=== PATIENT | female | born 1975 | race Caucasian/White ===

== ENCOUNTER 2017-04-23 05:50 | Day surgery (SDC) | payer BC ==
[~2017-04-23] VITALS: Ht 170.2 cm; Wt 81.6 kg
[2017-04-23 06:46] LABS: BILIRUBIN,URINE NEGATIVE (NEGATIVE); BLOOD, URINE NEGATIVE (NEGATIVE); CLARITY/URINE CLEAR (CLEAR); COLOR,URINE YELLOW (YELLOW); GLUCOSE,URINE NEGATIVE (NEGATIVE); KETONES,URINE NEGATIVE (NEGATIVE); LEUKOCYTE ESTERASE ,URINE NEGATIVE (NEGATIVE); NITRITE, URINE NEGATIVE (NEGATIVE); PROTEIN URINE NEGATIVE (NEGATIVE); UROBILINOGEN,URINE 0.2 (0.2-1.0)
[2017-04-23 06:53] LABS: BASOPHILS % (AUTO) 0.4 % (0.0-2.0); EOSINOPHILS # (AUTO) 0.2 K/uL (0.0-0.4); EOSINOPHILS % (AUTO) 2.3 % (0.0-4.0); HEMOGLOBIN 13.3 g/dL (12.0-16.0); LYMPHOCYTES # (AUTO) 2.1 K/uL (1.0-5.5); LYMPHOCYTES % (AUTO) 24.4 % (20.5-51.5); MEAN CORPUSCULAR HEMOGLOBIN 31 pg (27-31); MEAN CORPUSCULAR HGB CONC 35 % (32-36); MEAN CORPUSCULAR VOLUME 87 fL (79.0-98.0); MONOCYTES # (AUTO) 0.6 K/uL (0.0-1.0); MONOCYTES % (AUTO) 7.6 % (1.7-9.3); NEUTROPHILS # (AUTO) 5.6 K/uL (1.8-7.7); NEUTROPHILS % (AUTO) 65.3 % (40.0-70.0); PLATELET COUNT (AUTO) 342 K/uL (130-430); RED BLOOD CELL COUNT(AUTO) 4.35 MIL/uL (4.2-6.2); RED CELL DISTRIBUTION WIDTH 12.1 % (9.0-15.0); WHITE BLOOD COUNT (AUTO) 8.5 K/uL (4.8-10.8)
[2017-04-23] MEDS ORDERED: CEFAZOLIN SOD 1 GM/ ISO 50 ML PREMIX IV ONE (07:00)
[2017-04-23] MEDS ORDERED: NS IRRIG SOLN 1000 ML IR ONE (07:01)
[2017-04-23] MEDS ORDERED: ROCURONIUM BROMIDE 10 MG/ML (ZEMURON) IV ONE (07:01)
[2017-04-23] MEDS ORDERED: KETOROLAC TROMETHAMINE 30 MG VIAL IVP ONE (07:01)
[2017-04-23] MEDS ORDERED: SEVOFLURANE 15 MIN GAS INH ONE (07:01)
[2017-04-23] MEDS ORDERED: LR 1,000 ML IV.SOLN IV ONE (07:01)
[2017-04-23] MEDS ORDERED: fentaNYL CITRATE/PF 100 MCG/2 ML AMP IVP ONE (07:01)
[2017-04-23] MEDS ORDERED: NEOSTIGMINE METHYLSULFATE 1 MG/ML, 10 ML VIAL IVP ONE (07:01)
[2017-04-23] MEDS ORDERED: METOPROLOL TARTRATE 5 MG/5 ML VIAL IVP ONE (07:01)
[2017-04-23] MEDS ORDERED: METHYLERGONOVINE MALEATE 0.2 MG/ML AMP IM ONE (07:01)
[2017-04-23] MEDS ORDERED: GLYCOPYRROLATE 0.2 MG/ML VIAL IJ ONE (07:01)
[2017-04-23] MEDS ORDERED: PROPOFOL 200MG/ 20ML VIAL (DIPRIVAN) IV ONE (07:01)
[2017-04-23] MEDS ORDERED: MIDAZOLAM HCL 5 MG/5 ML VIAL IVP ONE (07:01)
[2017-04-23] MEDS ORDERED: ONDANSETRON HCL 4 MG/2 ML VIAL IVP ONE (07:01)
[2017-04-23] MEDS ORDERED: CEFAZOLIN 1 GM IVPB PREMIX 50 ML IV ONE (07:12)
[2017-04-23] MEDS ORDERED: LR 1,000 ML IV SCH (08:13)
[2017-04-23] MEDS ORDERED: KETOROLAC TROMETHAMINE 30 MG VIAL IVP PRN (08:15)
[2017-04-23] MEDS ORDERED: HYDROmorphone 2 MG/ML VIAL IVP PRN ×2 (08:15)
[2017-04-23] MEDS ORDERED: ONDANSETRON HCL 4 MG/2 ML VIAL IVP PRN (08:15)
[2017-04-23] MEDS ORDERED: MEPERIDINE HCL/PF 25 MG/ML DISP.SYRIN IVP PRN ×2 (08:15)
[2017-04-23] MEDS ORDERED: HYDROmorphone 1 MG INJ. 1 MG/ML AMPUL IVP PRN (08:15)
[2017-04-23] MEDS ORDERED: HYDROmorphone 1 MG INJ. 1 MG/ML AMPUL ONE ×2 (09:19→09:37)
[2017-04-23] MEDS ORDERED: METOCLOPRAMIDE HCL 10 MG/2 ML VIAL ONE (09:30)
[2017-04-23] MEDS ORDERED: ONDANSETRON HCL 4 MG/2 ML VIAL ONE (09:35)
[2017-04-23 10:01] VITALS: BP_SYST 108
== END 2017-04-23 11:35 | disposition home or self-care (01) ==
LOC: SDS 05:50 → SMU 06:57 → SDS 11:35
PROVIDERS: ATTEND Specialist
DX: D27.1 Benign neoplasm of left ovary (principal); N73.6 Female pelvic peritoneal adhesions (postinfective); E03.9 Hypothyroidism, unspecified; N80.9 Endometriosis, unspecified; M79.7 Fibromyalgia; Z88.8 Allergy status to other drugs, medicaments and biological substances; G43.909 Migraine, unspecified, not intractable, without status migrainosus; K21.9 Gastro-esophageal reflux disease without esophagitis; Z90.710 Acquired absence of both cervix and uterus; M19.90 Unspecified osteoarthritis, unspecified site
CPT/HCPCS: 58661; 84702; 85025; 36415; 81003; 88305; J0690; J3490 ×2; J1885; J2210; J2765; J2250; J2710; J2405; J2704; J3010; J1170; J7120; C1782; C1727

== ENCOUNTER 2021-12-24 15:18 | Emergency (ER) | payer BC ==
[~2021-12-24] VITALS: Ht 170.2 cm; Wt 86.2 kg
[2021-12-24 15:38] VITALS: BP_SYST 150
--- NOTE | 2021-12-24 16:03 | NUR ---
Patient to ER bed 08 to gown for evaluation. Side rails up.
[2021-12-24] MEDS ORDERED: KETOROLAC TROMETHAMINE 60 MG/2 ML VIAL IM ONE ×2 (16:15→17:15)
--- NOTE | 2021-12-24 17:12 | NUR ---
Assumed care from ADRIANA Hale for continuity of care. Patient stable condition. Vital signs stable. Patient asked for pain medicine. Patient refusing HCG urine test because she said she "had a hysterectomy [address] Ramirez made aware.
[2021-12-24] MEDS ORDERED: HYDR-3917 PO (17:16)
[2021-12-24] MEDS ORDERED: IBUP-1969 PO (17:16)
[2021-12-24 18:26] VITALS: BP_SYST 120
--- NOTE | 2021-12-24 18:28 | NUR ---
Patient given written and verbal discharge instructions and verbalizes understanding. ER MD discussed with patient the results and treatment provided. Patient in stable condition. ID arm band removed. IV catheter removed intact and dressing applied, no active bleeding. Rx of Medications given. Patient educated on pain management and to follow up with PMD. Pain Scale . Opportunity for questions provided and answered. Medication side effect fact sheet provided.
== END 2021-12-24 18:26 | disposition home or self-care (01) ==
LOC: SED 15:18
DX: S83.91XA Sprain of unspecified site of right knee, initial encounter (principal); Z91.040 Latex allergy status; Z79.899 Other long term (current) drug therapy; X50.9XXA Other and unspecified overexertion or strenuous movements or postures, initial encounter; Y93.89 Activity, other specified; Y92.89 Other specified places as the place of occurrence of the external cause; Y99.8 Other external cause status
CPT/HCPCS: 29505; 73564; 96372; 99283; J1885